=== PATIENT | male | born 1990 | race African-American/Black ===

== ENCOUNTER 2021-01-20 07:16 | Emergency (ER) | payer MEDICAID ==
[~2021-01-20] VITALS: Ht 162.6 cm; Wt 83.9 kg
--- NOTE | 2021-01-20 07:37 | NUR ---
TO ER BED 3, C/O DYSURIA, PENILE DISCHARGE, AND COUGH, MD AT BEDSIDE
--- NOTE | 2021-01-20 07:40 | NUR ---
URINE COLLECTED AND SENT TO LAB
[2021-01-20] MEDS ORDERED: CEFTRIAXONE 500 MG VIAL ONE (07:52)
[2021-01-20] MEDS ORDERED: DOXYCYCLINE HYCLATE (100 MG) 100 MG TABLET ONE (07:53)
[2021-01-20] MEDS ORDERED: LIDOCAINE /MPF 1% VIAL 5 ML VIAL ONE (07:53)
[2021-01-20] MEDS ORDERED: DOXYCYCLINE HYCLATE (100 MG) 100 MG TABLET PO ONE (08:00)
[2021-01-20] MEDS ORDERED: CEFTRIAXONE 500 MG VIAL IM ONE (08:00)
--- NOTE | 2021-01-20 08:00 | NUR ---
CALLED LAB FOR COVID ANTIGEN [facility]
[2021-01-20 08:42] LABS: BILIRUBIN,URINE Negative (NEGATIVE); COLOR,URINE YELLOW (YELLOW); LEUKOCYTE ESTERASE ,URINE Negative (NEGATIVE); NITRITE, URINE Negative (NEGATIVE); PROTEIN,URINE Negative (NEGATIVE); UGLUCOSE Negative (NEGATIVE); UROBILINOGEN,URINE 0.2 EU/dL (0.2)
[2021-01-20 09:03] VITALS: BP 118/66
[2021-01-20] MEDS ORDERED: DOXY100C2 PO (09:11)
== END 2021-01-20 09:46 | disposition home or self-care (01) ==
LOC: ER 07:31
DX: N34.2 Other urethritis (principal); R05 Cough; Z20.822 Contact with and (suspected) exposure to COVID-19; F20.9 Schizophrenia, unspecified; F17.210 Nicotine dependence, cigarettes, uncomplicated; Z87.01 Personal history of pneumonia (recurrent)
CPT/HCPCS: 71045; 81003; 87086; 87426; 87491; 87591; 96372; 99284; 99406; C9803; J0696; J3490